=== PATIENT | male | born 1950 | race Caucasian/White ===

== ENCOUNTER 2020-11-12 20:56 | Emergency (ER) | payer MEDICARE ==
[~2020-11-12] VITALS: Ht 180.3 cm; Wt 83.9 kg
[2020-11-12] MEDS ORDERED: GABAPENTIN600 MG PO (21:08)
--- NOTE | 2020-11-13 18:07 | EKG ---
[facility] [address] [facility] [place], [place] [address] Signed Normal sinus rhythm Cannot rule out Anterior infarct , age undetermined Abnormal ECG No previous ECGs available Confirmed by JOSÉ DUNNE MD ([id number]) on 11/13/2020 6:07:40 PM Electronically Signed By: JOSÉ DUNNE MD 11/13/201806 PATIENT NAME: ALEX BOYD Electrocardiogram DATE OF : 50 PHYSICIAN: JOSÉ DUNNE MD REPORT #: [id number] REPORT IS CONFIDENTIAL AND NOT TO BE RELEASED WITHOUT AUTHORIZATION
--- NOTE | 2020-11-13 18:08 | EKG ---
[facility] [address] [facility] [place] [address] Signed Normal sinus rhythm Left axis deviation Left bundle branch block Abnormal ECG When compared with ECG of 12-NOV-2020 22:08, (Unconfirmed) premature ventricular complexes are no longer present Left bundle branch block is now present Minimal criteria for Anterior infarct are no longer present Confirmed by JOSÉ DUNNE MD ([id number]) on 11/13/2020 6:07:47 PM Electronically Signed By: JOSÉ DUNNE MD 11/13/20 180 PATIENT NAME: DEBALEX Electrocardiogram DATE OF : 50 PHYSICIAN: JOSÉ DUNNE MD REPORT #: [id number] REPORT IS CONFIDENTIAL AND NOT TO BE RELEASED WITHOUT AUTHORIZATION
== END 2020-11-13 00:30 | disposition home or self-care (01) ==
LOC: ED 20:56
DX: R55 Syncope and collapse (principal); Z20.822 Contact with and (suspected) exposure to COVID-19; I11.0 Hypertensive heart disease with heart failure; I50.9 Heart failure, unspecified; I25.2 Old myocardial infarction; Z79.899 Other long term (current) drug therapy
CPT/HCPCS: 71045; 80053; 83735; 84484; 85025; 93005; 93010; 99284-25; C9803; U0003